=== PATIENT | male | born 1985 | race Caucasian/White ===

== ENCOUNTER 2017-02-18 13:05 | Emergency (ER) | payer SELFPAY ==
[~2017-02-18] VITALS: Ht 185.4 cm; Wt 90.7 kg
[2017-02-18] MEDS ORDERED: MEDROL DOSEPAK4 MG PO (13:55)
== END 2017-02-18 14:22 | disposition home or self-care (01) ==
LOC: ED 13:05
DX: L25.5 Unspecified contact dermatitis due to plants, except food (principal); F17.200 Nicotine dependence, unspecified, uncomplicated

== ENCOUNTER 2017-05-16 07:09 | Emergency (ER) | payer SELFPAY ==
[~2017-05-16] VITALS: Ht 182.8 cm; Wt 95.3 kg
[~2017-05-16 07:09] MED LIST: MEDROL DOSEPAK4 MG PO
[2017-05-16] MEDS ORDERED: CYCLOBENZAPRINE10 MG PO (11:02)
[2017-05-16] MEDS ORDERED: IBU800 MG PO (11:04)
== END 2017-05-16 11:31 | disposition home or self-care (01) ==
LOC: ED 07:09
DX: S16.1XXA Strain of muscle, fascia and tendon at neck level, initial encounter (principal); F17.200 Nicotine dependence, unspecified, uncomplicated; X50.0XXA Overexertion from strenuous movement or load, initial encounter; Y93.89 Activity, other specified; Y92.096 Garden or yard of other non-institutional residence as the place of occurrence of the external cause; Y99.0 Civilian activity done for income or pay

== ENCOUNTER 2025-06-09 19:19 | Emergency (ER) | payer OTHER ==
[~2025-06-09] VITALS: Ht 182.8 cm; Wt 118.4 kg
[~2025-06-09 19:19] MED LIST changes: +CYCLOBENZAPRINE10 MG PO; +IBU800 MG PO
[2025-06-09] MEDS ORDERED: Ondansetron Hydrochloride 4 MG TAB SL ONE (19:55)
[2025-06-09] MEDS ORDERED: Acetaminophen/Hydrocodone 5 MG/325 MG TABLET PO ONE (19:55)
[2025-06-09] MEDS ORDERED: PENICILLIN V POTASSIUM 500 MG TAB PO ONE (19:55)
[2025-06-09] MEDS ORDERED: PENICILLIN VK500 MG PO (19:55)
== END 2025-06-09 20:23 | disposition home or self-care (01) ==
LOC: ED 19:19
DX: K02.9 Dental caries, unspecified (principal)